=== PATIENT | female | born 1975 | race African-American/Black ===

== ENCOUNTER 2017-04-24 20:52 | Emergency (ER) | payer MEDICAID, OTHER ==
[~2017-04-24] VITALS: Ht 170.2 cm; Wt 120.2 kg
[~2017-04-24 20:52] MED LIST: COLACE100 MG PO
[2017-04-24 21:30] VITALS: BP 115/62
[2017-04-24] MEDS ORDERED: TRAMADOL HCL50 MG ORAL (22:09)
[2017-04-24] MEDS ORDERED: PREDNISONE20 MG ORAL (22:09)
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
[2017-04-24 22:15] VITALS: BP 138/79
== END 2017-04-24 22:25 | disposition home or self-care (01) ==
LOC: EMR 22:22
DX: M25.50 Pain in unspecified joint (principal); M79.89 Other specified soft tissue disorders; Z88.0 Allergy status to penicillin
CPT/HCPCS: 99284; J7512

== ENCOUNTER 2018-10-18 17:17 | Emergency (ER) | payer OTHER ==
[~2018-10-18] VITALS: Ht 162.6 cm; Wt 77.1 kg
--- NOTE | 2018-10-18 17:15 | NUR ---
ED Nurse Note: Patient is restless and EMS unable to take temperature.
[~2018-10-18 17:17] MED LIST changes: +PREDNISONE20 MG ORAL; +TRAMADOL HCL50 MG ORAL
[2018-10-18 17:20] VITALS: BP 154/102
--- NOTE | 2018-10-18 17:20 | NUR ---
ED Nurse Note: Patient brought in to ER by ambulance and [employer] due to behavioral complaint. pt aao x1 to name only and restless and laughing without reason consistently. skin clean and intact. no acute distress noted at this time. pt is restless and tachycardia and ERMD made aware. pt is in gown and on quality assurance monitor body. Pt is not on hold or in custody so [employer] removed handcuff and left. per [employer], pt was laying on the floor in the bus and people in the bus called [employer] but no harming self or other people. pt denied SI.
--- NOTE | 2018-10-18 17:50 | NUR ---
ED Nurse Note: pt tried to get out of bed. pt was redirected back to bed by nurse. BESSIED made aware.
[2018-10-18 18:00] LABS: BASOPHILS % (AUTO) 0.8 % (0.0-2.0); EOSINOPHILS % (AUTO) 0.9 % (0.0-3.0); HEMATOCRIT 37.8 % (37.0-47.0); HEMOGLOBIN 12.8 G/DL (12.0-16.0); LYMPHOCYTES % (AUTO) 16.3 % (20.0-45.0); MEAN CORPUSCULAR VOLUME 83 FL (80-99); NEUTROPHILS % (AUTO) 75.1 % (45.0-75.0); PLATELET COUNT 201 K/UL (150-450); RED BLOOD COUNT 4.54 M/UL (4.20-5.40); RED CELL DISTRIBUTION WIDTH 12.4 % (11.6-14.8); WHITE BLOOD COUNT 5.9 K/UL (4.8-10.8)
[2018-10-18 18:18] LABS: ANION GAP 14 mmol/L (5-15); BLOOD UREA NITROGEN 9 mg/dL (7-18); CALCIUM 9.5 MG/DL (8.5-10.1); CARBON DIOXIDE 18 MMOL/L (21-32); CHLORIDE 109 MMOL/L (98-107); CREATININE 1.1 MG/DL (0.55-1.30); POTASSIUM 3.3 MMOL/L (3.5-5.1); SODIUM 141 MMOL/L (136-145)
[2018-10-18 18:30] LABS: ALANINE AMINOTRANSFERASE 21 U/L (12-78); ALBUMIN/GLOBULIN RATIO 0.8 (1.0-2.7); ALKALINE PHOSPHATASE 58 U/L (46-116); ASPARTATE AMINO TRANSFERASE 20 U/L (15-37); BILIRUBIN,TOTAL 0.2 MG/DL (0.2-1.0)
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
[2018-10-18] MEDS ORDERED: ZyPREXA Zydis 10mg tab ORAL ONE (18:45)
--- NOTE | 2018-10-18 19:07 | NUR ---
HAND-OFF: Report given to Farrukh Ying RN. no orders to carry at this time.
--- NOTE | 2018-10-18 19:19 | NUR ---
ED Nurse Note: received pt from wayne alfaro rn. patient resting comfortably in bed with nad. per ermd, no iv present and unattached from monitor. offered food and water; pt refused. pt states destination after discharge. pt states she is not homeless. confirmed address x3.
--- NOTE | 2018-10-18 19:51 | NUR ---
ED Nurse Note: report given to gilles morris. pt moved to ortho with all belongings.
[2018-10-18 20:30] VITALS: BP 142/88
--- NOTE | 2018-10-18 20:45 | NUR ---
ER DISCHARGE NOTE: Patient is cleared to be discharged per ERMD, pt is aox4, on room air, with stable vital signs. pt was given dc instructions, pt was able to verbalize understanding, pt id band and iv site removed without complications. pt is able to ambulate with steady gait. pt took all belongings. Patient refused to sign discharge paperwork
== END 2018-10-18 20:45 | disposition home or self-care (01) ==
LOC: EDBD 17:17 → EDSEX 17:17 → EMR 19:05
DX: F19.10 Other psychoactive substance abuse, uncomplicated (principal); F12.10 Cannabis abuse, uncomplicated; Z88.0 Allergy status to penicillin
CPT/HCPCS: 36415; 80053; 80307; 80329; 84443; 84484; 85025; 96360; 99284; J8499